=== PATIENT | male | born 1995 | race Caucasian/White ===

== ENCOUNTER 2016-03-07 22:02 | Emergency (ER) | payer OTHER ==
[~2016-03-07 22:02] MED LIST: BENADRYL25 MG PO; CLEOCIN HCL300 M1 PO; CLINDAMYCIN300 MG PO; COMBIGAN EYE DRO5 ML OD; EPIPEN 2-P0.3 MG/0.3 IM; IBU800 MG PO; PEPCID20 M1 PO; PREDNISONE10 M2 PO; TRAVATAN Z5 ML OD; TYLENOL #31 TAB PO; VICODIN 5-3001 EACH PO
--- NOTE | 2016-03-07 22:56 | ED PSYCHIATRIC COMPLAINT ---
See Addendum History of Present Illness General Chief Complaint: Psychiatric Related Complaint Stated Complaint: PT TOLD ME HE WANTS TO HURT HIMSELF Source: patient Exam Limitations: no limitations Vital Signs & Intake/Output Vital Signs & Intake/Output Vital Signs Date Time Temp Pulse Resp B/P Pulse O2 O2 Flow FiO2 Ox Delivery Rate 03/07 2259 Room Air 03/07 2212 110 22 126/70 98 Room Air ED Intake and Output 03/08 0000 03/07 1200 Intake Total Output Total Balance Patient 185 lb Weight Allergies Coded Allergies: amoxicillin (Intermediate, Swelling LEGS/Difficulty Ambulating 07/19/15) Reconcile Medications Brimonidine Tartrate/Timolol (Combigan Eye Drops) 5 ML DROPS 1 DROP OD QAM RIGHT EYE (Reported) Travoprost (Travatan Z) 5 ML DROPS 1 GTT OD QPM RIGHT EYE (Reported) Triage Note: PER PT "WANT TO HURT EVERYONE AND MYSELF" BEEN DRINKING AND SOME WEED" Triage Nurses Notes Reviewed? yes Onset: Abrupt Duration: day(s): Timing: recent history HPI: 20-year-old male comes into emergency room for further evaluation of suicidal ideation. Patient reports that his grandfather recently . Patient was at an inpatient detox facility for drugs. Patient discharged himself because he wanted to go to his grandfather's . Patient reports that he wants to hurt his uncle as well. Patient reports that he tried to kill himself he would do with pills. Patient has been having suicidal ideations. (JACE SHAH) Past History Travel History Traveled to [place] past 21 day No Medical History Any Pertinent Medical History? see below for history Neurological: NONE EENT: R EYE PRESSURE Cardiovascular: NONE Respiratory: NONE Gastrointestinal: NONE Hepatic: NONE Renal: NONE Musculoskeletal: NONE Psychiatric: depression Endocrine: NONE Blood Disorders: NONE Cancer(s): NONE BEAN SNIPPER/Reproductive: NONE Other Medical Hx: Polysubstance abuse History of MRSA: No History of VRE: No History of CDIFF: No Surgical History Surgical History: none Psychosocial History Who do you live with Other (see notes) What is your primary language Stateless Tobacco Use: Current Daily Use Daily Tobacco Use Amount/Type: => 5 Cigarettes daily ETOH Use: heavy use Family History Hx Contributory? No (JACE SHAH) Review of Systems Review of Systems Constitutional: Reports: no symptoms. EENTM: Reports: no symptoms. Respiratory: Reports: no symptoms. Cardiovascular: Reports: no symptoms. GI: Reports: no symptoms. Genitourinary: Reports: no symptoms. Musculoskeletal: Reports: no symptoms. Skin: Reports: no symptoms. Neurological/Psychological: Reports: see HPI. Hematologic/Endocrine: Reports: no symptoms. Immunologic/Allergic: Reports: no symptoms. All Other Systems: Reviewed and Negative (JACE SHAH) Physical Exam Physical Exam General Appearance: well developed/nourished, mild distress Head: atraumatic Eyes: Bilateral: normal appearance, EOMI. Ears, Nose, Throat: normal ENT inspection, hearing grossly normal Neck: normal inspection Respiratory: no respiratory distress Cardiovascular: regular rate/rhythm Extremities: normal range of motion Neurological/Psychiatric: awake, agitated, alert, normal mood/affect, depressed affect Appearance/Memory/Insight: appropriate appearance Behavoir/Eye Contact/Speech: cooperative Thoughts/Hallucinations: no apparent hallucination Skin: intact, normal color, warm/dry SAD PERSONS SAD PERSONS Response Value Male Sex? yes 1 Depression/Hopelessness? yes 2 Previous Attempts/Psych Care yes 1 Excessive Ethanol/Drug Use? yes 1 Single//? yes 1 Stated Future Intent? yes 2 Total 8 SAD PERSONS Done? yes (JACE SHAH) Progress Differential Diagnosis: dementia, drug intoxication, drug overdose, drug withdrawal, electrolyte abnormality, encephalitis, hypoglycemia, hypothyroidism, IC hem/mass/tumor, meningitis, depression, anxiety, bipolar, psychosis, Plan of Care: Orders Procedure Date/time Status Continuous Observation Monitor 03/08 0700 Active Continuous Observation Monitor 03/08 0300 Active Continuous Observation Monitor 03/07 2310 Active ACETOMINOPHEN 03/07 224 Complete SALICYLATE 03/07 2244 Complete URINE DRUGS OF ABUSE 03/07 224 Complete ETHANOL 03/07 224 Complete COMPREHENSIVE METABOLIC PANEL 03/07 2243 Complete CBC WITHOUT DIFFERENTIAL 03/07 2243 Complete EKG 03/07 2243 Active ED CRISIS PSYCH CONSULT 03/07 2243 Active Laboratory Tests 03/07/16 2255: Serum Alcohol 161.0 03/07/16 2255: Urine Opiates Screen < 100.00, Methadone Screen < 40, Barbiturate Screen < 60, Ur Phencyclidine Scrn > 72.00 H, Amphetamines Screen < 100, U Benzodiazepines Scrn < 85, Urine Cocaine Screen < 50, Urine Cannabis Screen 14.60 03/07/16 2255: Anion Gap 15, Estimated GFR > 60, BUN/Creatinine Ratio 17.0, Glucose 94, Calcium 9.4, Total Bilirubin 0.5, AST 16 L, ALT 33, Alkaline Phosphatase 50, Total Protein 7.6, Albumin 4.7, Globulin 2.9, Albumin/Globulin Ratio 1.6, CBC w Diff NO MAN DIFF REQ, RBC 5.41, MCV 93.3, MCH 31.9 H, RDW 13.3, MPV 7.6, Gran % 63.5 , Lymphocytes % 26.9, Monocytes % 5.9, Eosinophils % 3.4, Basophils % 0.3, Absolute Granulocytes 5.0, Absolute Lymphocytes 2.1, Absolute Monocytes 0.5, Absolute Eosinophils 0.3, Absolute Basophils 0, PUBS MCHC 34.2, Salicylates < 1.0, Acetaminophen < 10.0 L Initial ED EKG: normal intervals, normal p-waves, normal sinus rhythm, rate (84) Hand-Off Endorsed To: ROSEANN APODACA MD Endorsed Time: 002 Pending: consult (crisis) (JACE SHAH) Hand-Off Endorsed To: SAMIR العراقي MD Endorsed Time: 0700 Pending: consult (ROSEANN APODACA MD) Hand-Off Endorsed To: ROSEANN APODACA MD (SAMIR العراقي MD) Departure Departure Disposition: STILL A PATIENT Condition: Stable Clinical Impression Primary Impression: Suicidal ideation Referrals: PATIENT HAS NO PRIMARY CARE DR (PCP/Family) Departure Forms: Customer Survey General Discharge Information (JACE SHAH) PA/SUGAR LABORATORY ASSISTANT Co-Sign Statement Statement: ED Attending supervision documentation- [] I saw and evaluated the patient. I have also reviewed all the pertinent lab results and diagnostic results. I agree with the findings and the plan of care as documented in the PA's/SUGAR LABORATORY ASSISTANT's documentation. x I have reviewed the ED Record and agree with the PA's/SUGAR LABORATORY ASSISTANT's documentation. [] Additions or exceptions (if any) to the PAs/SUGAR LABORATORY ASSISTANT's note and plan are summarized below: [] (ROSEANN APODACA MD) PA/SUGAR LABORATORY ASSISTANT Co-Sign Statement Statement: ED Attending supervision documentation- [] I saw and evaluated the patient. I have also reviewed all the pertinent lab results and diagnostic results. I agree with the findings and the plan of care as documented in the PA's/SUGAR LABORATORY ASSISTANT's documentation. [X] I have reviewed the ED Record and agree with the PA's/SUGAR LABORATORY ASSISTANT's documentation. [] Additions or exceptions (if any) to the PAs/SUGAR LABORATORY ASSISTANT's note and plan are summarized below: [] (DULCE MARIA DUBOIS,SAMIR)
[2016-03-07 23:04] LABS: ABSOLUTE BASOPHIL COUNT 0 /CUMM (0.0-0.2); ABSOLUTE EOSINOPHIL COUNT 0.3 /CUMM (0.0-0.7); ABSOLUTE LYMPH COUNT 2.1 /CUMM (1.2-3.4); ABSOLUTE MONOCYTE COUNT 0.5 /CUMM (0.10-0.60); BASOPHIL % 0.3 % (0.0-2.0); EOSINOPHIL % 3.4 % (0-5); GRANULOCYTE % 63.5 % (42.2-75.2); HEMATOCRIT 50.5 % (42-52); MEAN CORPUSCULAR HGB 31.9 PG (27.0-31.0); MEAN CORPUSCULAR HGB CONC 34.2 G/DL (33.0-37.0); MEAN CORPUSCULAR VOLUME 93.3 FL (80.0-94.0); MEAN PLATELET VOLUME 7.6 FL (7.4-10.4); PLATELET COUNT 219 /CUMM (130-400); RBC DISTRIBUTION WIDTH 13.3 % (11.5-14.5); RED BLOOD CELL CT 5.41 /CUMM (4.70-6.10); WHITE BLOOD CELL COUNT 7.8 /CUMM (4.8-10.8)
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
[2016-03-08 16:33] VITALS: BP 125/70
== END 2016-03-08 16:54 | disposition short-term general hospital (02) ==
LOC: ERH 22:02
PROVIDERS: Physician Assistant Medical
DX: R45.851 Suicidal ideations (principal); F10.10 Alcohol abuse, uncomplicated; F14.10 Cocaine abuse, uncomplicated; F16.10 Hallucinogen abuse, uncomplicated; F12.10 Cannabis abuse, uncomplicated
CPT/HCPCS: 80307; 93005; 93010; G0463; G0480

== ENCOUNTER 2017-03-04 03:10 | Emergency (ER) | payer OTHER ==
[~2017-03-04] VITALS: Ht 185.4 cm; Wt 78.5 kg
[2017-03-04 03:14] VITALS: BP 143/63
--- NOTE | 2017-03-04 03:17 | ED GENERAL ADULT ---
History of Present Illness General Chief Complaint: ETOH/Drug Related Complaint Stated Complaint: BIBA, ETOH Source: patient, family, old records, EMS Exam Limitations: intoxication Vital Signs & Intake/Output Vital Signs & Intake/Output Vital Signs Date Time Temp Pulse Resp B/P B/P Pulse O2 O2 Flow FiO2 Mean Ox Delivery Rate 03/04 0314 98.3 83 18 143/63 96 Room Air Allergies Coded Allergies: amoxicillin (Intermediate, Swelling LEGS/Difficulty Ambulating 07/19/15) Reconcile Medications No Known Home Medications Triage Nurses Notes Reviewed? yes HPI: Patient was found by the side of the road dry heaving. Patient admits to drinking alcohol tonight. Patient denies coingestions. Patient denies any suicidal or homicidal ideations. Patient brought in for evaluation. Past History Travel History Traveled to [place] past 21 day No Medical History Any Pertinent Medical History? see below for history Neurological: NONE EENT: R EYE GLAUCOMA Cardiovascular: NONE Respiratory: NONE Gastrointestinal: NONE Hepatic: NONE Renal: NONE Musculoskeletal: NONE Psychiatric: depression Endocrine: NONE Blood Disorders: NONE Cancer(s): NONE SEE SUPERVISOR/Reproductive: NONE Other Medical Hx: Polysubstance abuse History of MRSA: No History of VRE: No History of CDIFF: No Surgical History Surgical History: none Psychosocial History Who do you live with Other (see notes) What is your primary language Cypriot Tobacco Use: Current Daily Use Daily Tobacco Use Amount/Type: => 5 Cigarettes daily ETOH Use: heavy use Illicit Drug Use: denies illicit drug use (RECENT) Family History Hx Contributory? No Review of Systems Review of Systems Constitutional: Reports: no symptoms. Respiratory: Reports: no symptoms. Cardiovascular: Reports: no symptoms. GI: Reports: no symptoms. Musculoskeletal: Reports: no symptoms. Neurological/Psychological: Reports: no symptoms. Immunologic/Allergic: Reports: no symptoms. Physical Exam Physical Exam General Appearance: well developed/nourished, alert, anxious, intoxicated Head: atraumatic Eyes: Right: other (RED). Bilateral: PERRL, EOMI. Ears, Nose, Throat: normal pharynx, normal ENT inspection Neck: normal inspection, supple, full range of motion Respiratory: normal breath sounds, chest non-tender, no respiratory distress, lungs clear Cardiovascular: regular rate/rhythm, normal peripheral pulses Neurologic/Psych: no motor/sensory deficits, awake, alert, oriented x 3, normal mood/affect Core Measures ACS in differential dx? No CVA/TIA Diagnosis: No Sepsis Present: No Sepsis Focused Exam Completed? No Progress Differential Diagnoses I considered the following diagnoses in my evaluation of the patient: [ALCOHOL INTOXICATION] Plan of Care: HOLD FOR SOBRIETY Initial ED EKG: none Departure Departure Disposition: HOME OR SELF CARE Condition: Stable Clinical Impression Primary Impression: Alcohol intoxication Qualifiers: Complication of substance-induced condition: uncomplicated Qualified Code: F10.920 - Alcohol use, unspecified with intoxication, uncomplicated Referrals: Patient Has No Primary Care Dr (PCP/Family) Additional Instructions: RETURN FOR ANY CONCERNS Departure Forms: Customer Survey General Discharge Information Prescriptions: Current Visit Scripts No Known Home Medications Critical Care Note Critical Care Note Critical Care Time: non-applicable
== END 2017-03-04 04:06 ==
LOC: ERH 03:10
DX: F10.129 Alcohol abuse with intoxication, unspecified (principal)